=== PATIENT | female | born 1960 | race American Indian/Alaskan Native ===

== ENCOUNTER 2017-05-21 08:18 | Emergency (ER) | payer MEDICAID ==
[2017-05-21] MEDS ORDERED: TORADOL IV ONE (11:06)
[2017-05-21] MEDS ORDERED: MORPHINE IV ONE (11:06)
[2017-05-21] MEDS ORDERED: ZOFRAN IV ONE (11:06)
--- NOTE | 2017-05-21 11:20 | Emergency Department Report ---
ED Eye Problem HPI - General Chief complaint: Eye Problems Stated complaint: RIGHT EYE PAIN Time Seen by Provider: 05/21/17 10:51 Source: patient Mode of arrival: Ambulatory Limitations: No Limitations - History of Present Illness Initial comments: 57 yo female with a past medical history of prosthetic right eye, CHF, hypertension, anxiety, seizures, and thyroidism presents to the hospital complaints of ongoing right eye pain and chest pain that developed while in the ED. Patient has a prosthetic right eye surgery in early . She recently has seen both her eyes specialist and the prosthetic specialist on her right eye pain since April 12. Pain is described as sharp and rated 9/10 in intensity. Her systems designer referred her to a prosthetic specialist who told her she had a scratch on her prosthetic eye and therefore polished it prescribed GenTeal lubricating eyedrops. Patient continued to have eye discomfort after this procedure and felt like the change/Switched her prosthetic eye without telling her. She also thinks that they GenTeal lubricating drops causing increased drainage and swelling to her eye area. She went back to her systems designer and was prescribed a different eyedrops but continues to have pain. Patient removes her eye and watches a daily in a applies lubricating drops prior to reinsertion. She continues to have pain and drainage of clear mucous. No reports of fever. While waiting to be evaluated in the ED she developed right upper chest pain described at [facility] and cutting off her breath.. Pain is also reproducible with palpation rated 8/10 in intensity. - Related Data Home Medications Medication Instructions Recorded Confirmed Last Taken FLUoxetine [PROzac] 20 mg PO DAILY 08/06/13 08/07/13 08/06/13 Levothyroxine [Synthroid] 50 mcg PO QAM 08/06/13 08/07/13 08/06/13 Loratadine [Claritin RAPDIS] 10 mg PO QDAY 08/06/13 08/07/13 08/06/13 Metoprolol [Lopressor TAB] 25 mg PO BID 08/06/13 08/07/13 08/06/13 Phenytoin [Dilantin] 300 mg PO HS 08/06/13 08/07/13 08/05/13 risperiDONE [RisperDAL] 2 mg PO QDAY 08/06/13 08/07/13 08/06/13 traMADol [Ultram 50 MG tab] 50 mg PO Q4HR PRN 08/06/13 08/07/13 Unknown Previous Rx's Medication Instructions Recorded Last Taken Type Azithromycin [Zithromax Z-LEANDRO] 250 mg PO DAILY #6 tablet 08/07/13 Unknown Rx Oxycodone HCl/Acetaminophen 1 each PO Q6HR PRN #20 tablet 08/07/13 Unknown Rx [Percocet 7.5/325 mg] HYDROcodone/APAP 5-325 [[place] 1 each PO Q6HR PRN #20 tablet 05/21/17 Unknown Rx 5/325] Allergies Allergy/AdvReac Type Severity Reaction Status Date / Time Penicillins Allergy Swelling Verified 05/21/17 08:24 ED Review of Systems ROS: Stated complaint: RIGHT EYE PAIN Other details as noted in HPI Comment: All other systems reviewed and negative Other: Constitutional: No fevers chills Eyes: No eye pain visual changes ENT: No ear pain or throat pain Neck: Denies pain Respiratory: Denies cough Cardiovascular: Denies palpitations, syncope GI: Denies abdominal pain, nausea, vomiting, diarrhea : Denies dysuria Musculoskeletal: Denies back pain Skin: Denies rash, lesions, erythema Neurologic: Denies headache, numbness, weakness Psychiatric: Denies suicidal ideation, hallucinations ED Past Medical Hx - Past Medical History Hx Hypertension: Yes Hx Congestive Heart Failure: Yes Hx Seizures: Yes Hx Psychiatric Treatment: Yes (anxiety) Additional medical history: thyroid dz - Surgical History Additional Surgical History: Right eye surgery 1999 - Social History Smoking Status: Current Every Day Smoker Substance Use Type: None - Medications Home Medications: Home Medications Medication Instructions Recorded Confirmed Last Taken Type FLUoxetine [PROzac] 20 mg PO DAILY 08/06/13 08/07/13 08/06/13 History Levothyroxine [Synthroid] 50 mcg PO QAM 08/06/13 08/07/13 08/06/13 History Loratadine [Claritin RAPDIS] 10 mg PO QDAY 08/06/13 08/07/13 08/06/13 History Metoprolol [Lopressor TAB] 25 mg PO BID 08/06/13 08/07/13 08/06/13 History Phenytoin [Dilantin] 300 mg PO HS 08/06/13 08/07/13 08/05/13 History risperiDONE [RisperDAL] 2 mg PO QDAY 08/06/13 08/07/13 08/06/13 History traMADol [Ultram 50 MG tab] 50 mg PO Q4HR PRN 08/06/13 08/07/13 Unknown History Azithromycin [Zithromax Z-LEANDRO] 250 mg PO DAILY #6 tablet 08/07/13 Unknown Rx Oxycodone HCl/Acetaminophen 1 each PO Q6HR PRN #20 tablet 08/07/13 Unknown Rx [Percocet 7.5/325 mg] HYDROcodone/APAP 5-325 [[place] 1 each PO Q6HR PRN #20 tablet 05/21/17 Unknown Rx 5/325] ED Physical Exam - General Limitations: No Limitations - Other Other exam information: General: No limitations, patient is alert in no acute distress Head exam: Atraumatic, normocephalic Eyes exam: Prosthetic right eye, no periorbital swelling or active drainage noted ENT: Moist mucous membrane, normal oropharynx Neck exam: Normal inspection, full range of motion, no meningismus nontender Respiratory exam: Clear to auscultation bilateral, no wheezes, rales, crackles Cardiovascular: Normal rate and rhythm, reproducible right upper chest wall tenderness to palpation Abdomen: Soft, nondistended, and nontender, with normal bowel sounds, no rebound, or guarding Extremity: Full range of motion normal inspection no deformity, no calf tenderness or edema Back: Normal Inspection, full range of motion, no tenderness Neurologic: Alert, oriented x3, cranial nerves intact, no motor or sensory deficit Psychiatric: normal affect, normal mood Skin: Warm, dry, intact ED Course Vital Signs 05/21/17 05/21/17 08:26 11:53 Temperature 98.6 F 97.9 F Pulse Rate 97 H 77 Respiratory 18 16 Rate Blood Pressure 179/88 Blood Pressure 122/68 [Left] O2 Sat by Pulse 100 98 Oximetry - Reevaluation(s) Reevaluation #1: 05/21/17 11:22 Meds ordered for pain including morphine, Toradol, Zofran ED Medical Decision Making - Lab Data Result diagrams: 05/21/17 12:29 05/21/17 11:30 Lab Results 05/21/17 05/21/17 05/21/17 Range/Units 11:30 11:30 12:29 WBC 6.0 (4.5-11.0) K/mm3 RBC 4.60 (3.65-5.03) M/mm3 Hgb 9.0 L (10.1-14.3) gm/dl Hct 29.4 L (30.3-42.9) % MCV 64 L (79-97) fl MCH 20 L (28-32) pg MCHC 31 (30-34) % RDW 22.4 H (13.2-15.2) % Plt Count 257 (140-440) K/mm3 Lymph % (Auto) 27.9 (13.4-35.0) % Larue % (Auto) 7.7 H (0.0-7.3) % Eos % (Auto) 2.8 (0.0-4.3) % Baso % (Auto) 0.8 (0.0-1.8) % Lymph # 1.7 (1.2-5.4) K/mm3 Larue # 0.5 (0.0-0.8) K/mm3 Eos # 0.2 (0.0-0.4) K/mm3 Baso # 0.0 (0.0-0.1) K/mm3 Seg Neutrophils % 60.8 (40.0-70.0) % Seg Neutrophils # 3.7 (1.8-7.7) K/mm3 Sodium 141 (137-145) mmol/L Potassium 4.2 (3.6-5.0) mmol/L Chloride 103.9 (98-107) mmol/L Carbon Dioxide 23 (22-30) mmol/L Anion Gap 18 mmol/L BUN 9 (7-17) mg/dL Creatinine 0.7 (0.7-1.2) mg/dL Estimated GFR > 60 ml/min BUN/Creatinine Ratio 13 % Glucose 91 (65-100) mg/dL Calcium 8.7 (8.4-10.2) mg/dL Total Creatine Kinase 69 (30-135) units/L CK-MB (CK-2) < 1.0 (0.0-4.0) ng/mL CK-MB (CK-2) Rel Index 1.4 (0-4) Troponin T < 0.010 (0.00-0.029) ng/mL NT-Pro-B Natriuret Pep 199.5 (0-900) pg/mL - EKG Data -: EKG Interpreted by Pa EKG shows normal: sinus rhythm, axis (22), QRS complexes (92), ST-T waves (no stemi/t inv) Rate: normal (82) - EKG Data When compared to previous EKG there are: no significant change (02/16/14) - Radiology Data Radiology results: report reviewed (cxr read by radiologist: normal) - Medical Decision Making Patient has microcytic anemia likely secondary to iron deficiency. Patient has a known history is that she takes iron tablets. She was encouraged to continue. She was infromed that the prescribed medication may cause constipation and recommended stool softeners. Pt has ongoing right eye pain and reproducible chest wall pain will be prescribed. Follow-up with her systems designer and PMD will be encouraged - Differential Diagnosis eye infection, chronic pain, AR, costochondritis, Critical Care Time: No Critical care attestation.: If time is entered above; I have spent that time in minutes in the direct care of this critically ill patient, excluding procedure time. ED Disposition Clinical Impression: Pain of right orbit, Prosthetic eye globe, Chest wall pain, Iron deficiency anemia Disposition: TO HOME OR SELFCARE Is pt being admited?: No Does the pt Need Aspirin: No Condition: Stable Instructions: Eye Pain (ED), Chest Pain (ED), Iron Deficiency Anemia (ED) Additional Instructions: Taking medication as needed for pain. Follow-up department care doctor and systems designer for further management. Return if symptoms worsen. Take stool softeners as needed for constipation. Continue your iron tablets Prescriptions: HYDROcodone/APAP 5-325 [[place] 5/325] 1 each PO Q6HR PRN #20 tablet PRN Reason: Pain Referrals: PRIMARY CARE,MD [Primary Care Provider] - 3-5 Days your, systems designer [Other] - 3-5 Days Time of Disposition: 14:07
[2017-05-21] MEDS ORDERED: MOTRIN PO ONE (11:44)
[2017-05-21] MEDS ORDERED: NORCO 5/325 PO ONE (11:44)
[2017-05-21 11:54] VITALS: BP 122/68
--- NOTE | 2017-05-21 12:22 | XRay Report ---
CHEST TWO VIEWS: 05/21/17 08:18:00 CLINICAL: Chest pain. COMPARISON: 02/15/14 FINDINGS: Normal heart and pulmonary vasculature. The lungs are normally expanded and clear.The bones and soft tissues are unremarkable. IMPRESSION: Normal chest.
[2017-05-21 12:28] LABS: Anion Gap 18 mmol/L; Blood Urea Nitrogen 9 mg/dL (7-17); Carbon Dioxide 23 mmol/L (22-30); Chloride 103.9 mmol/L (98-107); Potassium 4.2 mmol/L (3.6-5.0); Sodium 141 mmol/L (137-145)
[2017-05-21 12:29] LABS: BUN/Creatinine Ratio 13; Calcium 8.7 mg/dL (8.4-10.2); Creatine Kinase 69 units/L (30-135); Glucose 91 mg/dL (65-100)
[2017-05-21 12:41] LABS: Creatine Kinase MB < 1.0 ng/mL (0.0-4.0)
[2017-05-21 13:24] LABS: Basophils % (Auto) 0.8 % (0.0-1.8); Eosinophils % (Auto) 2.8 % (0.0-4.3); Hematocrit 29.4 % (30.3-42.9); Mean Corpuscular HGB Conc 31 % (30-34); Platelet Count 257 K/mm3 (140-440)
[2017-05-21 13:30] LABS: Mean Corpuscular Hemoglobin 20 pg (28-32); Mean Corpuscular Volume 64 fl (79-97); Red Cell Distribution Width 22.4 % (13.2-15.2)
== END 2017-05-21 14:17 | disposition home or self-care (01) ==
LOC: ED 08:18
DX: R07.89 Other chest pain (principal); H57.11 Ocular pain, right eye; D50.9 Iron deficiency anemia, unspecified; I10 Essential (primary) hypertension; I50.9 Heart failure, unspecified; F17.200 Nicotine dependence, unspecified, uncomplicated
CPT/HCPCS: 36415; 71020; 80048; 82550; 82553; 83880; 84484; 85025; 93005; 93010